=== PATIENT | male | born 1955 | race Caucasian/White ===

== ENCOUNTER → 2021-06-09 10:13 | Outpatient (CLI) | payer MEDICARE, BC, SELFPAY ==
--- NOTE | ~2021-06-09 | XR_ITS ---
EXAMINATION: XR knee RT 2V DATE: 06/09/2021 11:19 INDICATION: Right knee pain TECHNIQUE: Two views of the right knee were obtained. COMPARISON: None. FINDINGS: Alignment is normal. No fracture or osteochondral lesion. There is mild tricompartmental os teoarthritis characterized by tiny marginal osteophytes. No joint effusion/synovitis. Soft tissues a re unremarkable. IMPRESSION: 1. No acute osseous abnormality. Reviewed, dictated and finalized at location B.
== END ==
PROVIDERS: PCP Family Medicine
DX: M25.561 Pain in right knee (principal)
CPT/HCPCS: 73560

== ENCOUNTER → 2021-06-21 07:57 | Outpatient (CLI) | payer MEDICARE, BC, SELFPAY ==
--- NOTE | ~2021-06-21 | MR_ITS ---
EXAMINATION: MR knee RT wo con DATE: 06/21/2021 08:53 INDICATION: Right knee pain. TECHNIQUE: Magnetic resonance imaging (MRI) of the right knee was performed without intravenous contr ast. Sequences included axial PD-weighted FS FSE, coronal PD-weighted FSE and PD-weighted FS FSE, sag ittal PD-weighted FSE, and sagittal T2-weighted FS FSE. COMPARISON: Right knee radiographs 06/09/2021 FINDINGS: Medial compartment: Medial meniscus is normal. Medial compartment cartilage is normal. Lateral compartment: There is an undersurface horizontal tear of posterior horn of lateral meniscus. There is deep partial thickness cartilage loss of tibial condyle involving the central and posterior articular surface wit h irregularity of the subchondral cortex. Femoral cartilage is normal. Patellofemoral compartment: There is shallow partial-thickness cartilage loss of patellar lateral facet. Trochlear cartilage is n ormal. Ligaments and tendons: The anterior and posterior cruciate ligaments are normal. There is a partial tear of medial collatera l ligament with surrounding edema. There is a skin marker superficial to medial femoral condyle. Ther e are changes of prior sprain of fibular collateral ligament characterized by thickening and increase d signal intensity. There is mild patellar tendinopathy. Fluid: There is a small knee joint effusion. There is a 13 x 8 mm ganglion cyst posterior to proximal tibiof ibular joint. There is trace fluid in a Hsu's cyst. There is mild prepatellar bursitis and moderate superficial infrapatellar bursitis. IMPRESSION: 1. 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 2. Tear of lateral meniscus. 3. Partial tear of medial collateral ligament (grade 2 sprain). 4. Small knee joint effusion. 5. Ganglion cyst posterior to proximal tibiofibular joint. Reviewed, dictated and finalized at location A. S SAGGER IMPRESSION: 1. Moderate chondrosis of lateral compartment and mild chondrosis of patellofem oral compartment. 2. Tear of lateral meniscus. 3. Partial tear of medial collateral ligament (grade 2 sprain). 4. Small knee joint effusion. 5. Ganglion cyst posterior to proximal tibiofibular joint.
== END ==
PROVIDERS: Visit Provider Family Medicine
DX: S83.281A Other tear of lateral meniscus, current injury, right knee, initial encounter (principal); X58.XXXA Exposure to other specified factors, initial encounter; M25.461 Effusion, right knee; S83.411A Sprain of medial collateral ligament of right knee, initial encounter; M71.21 Synovial cyst of popliteal space [Baker], right knee
CPT/HCPCS: 73721

== ENCOUNTER 2024-02-25 02:41 | Day surgery (SDC) | payer MEDICARE, BC, SELFPAY ==
[2024-02-12 10:42] VITALS: BMI 30.9
[2024-02-25 06:22] VITALS: BP 131/70; PULSE 94; RESP 18; TEMP 36.1; O2SAT 98
--- NOTE | 2024-02-25 06:33 | WPDANESEPPF ---
Anes - Initial Pre Proc Eval Procedure: Operation Date: 02/25/24 07:30 Proposed Procedures p Colonoscopy - Enrrique Arroyo MD Date/Time: 02/25/24 06:33 Surgeon: Enrrique Arroyo MD Pre Op Diagnosis: Personal history colon polyps Patient Data Age: 69 Gender: M Height: 1.75 m Weight: 95 kg Last Vital Signs Temp 36.1 C L 02/25/24 06:22 Pulse 94 02/25/24 06:22 Resp 18 02/25/24 06:22 BP 131/70 02/25/24 06:22 Pulse Ox 98 02/25/24 06:22 O2 Del Method Room Air 02/25/24 06:22 Allergies Allergy/AdvReac Type Severity Reaction Status Date / Time No Known Allergies Allergy Verified 02/25/24 06:21 Home Medications Medication Instructions Recorded Confirmed Type aspirin 81 mg tablet,delayed 81 mg PO DAILY 05/31/23 02/12/24 History release (Adult Low Dose Aspirin) blood sugar diagnostic (Accu-Chek #10 ea 05/31/23 05/31/23 Rx Guide test strips) blood-glucose meter (Accu-Chek #1 ea 05/31/23 05/31/23 Rx Guide Me Glucose Meter) finerenone 10 mg tablet (Kerendia) 10 mg PO DAILY 05/31/23 02/12/24 History metoprolol succinate 50 mg 50 mg PO DAILY 05/31/23 02/12/24 History tablet,extended release 24 hr montelukast 10 mg tablet 10 mg PO DAILY 05/31/23 02/12/24 History pantoprazole 40 mg tablet,delayed 40 mg PO QAM 05/31/23 02/12/24 History release rivaroxaban 20 mg tablet (Xarelto) 20 mg PO DAILY 05/31/23 02/25/24 History rosuvastatin 40 mg tablet 40 mg PO DAILY 05/31/23 02/12/24 History metformin 500 mg tablet,extended 2,000 mg PO DAILY 02/12/24 02/12/24 History release 24 hr semaglutide 1 mg/dose (4 mg/3 mL) See Rx Instructions .Route 02/17/24 Rx subcutaneous pen injector (Ozempic) .COMPLEX #9 mL Patient hx anesthesia problems: none Family hx anesthesia problems: none Results Review: All pre-operative results and documents have been reviewed as part of the pre-operative evaluation. [facility] Past Medical History Medical History (Updated 02/25/24 @ 06:33 by Kevan Oliveira MD) A-fib Obesity RADHA on CPAP Type 2 diabetes mellitus Surgical History Surgical History (Updated 02/25/24 @ 06:33 by Kevan Oliveira MD) H/O colonoscopy Family History Family History Other Diabetes mellitus Social History Social History Smoking status: Never smoker Alcohol intake: current Drinks per week: 1 Alcohol use details: Wine Substance use: never Do You Feel Safe in your Home?: Yes Lack of Transportation: No Lack of Food: Never True Current Housing: I Have Housing Concerned About Future Housing: No Difficulty Paying Gas/Electric Bills: No Difficulty Paying for Meds: No Currently Unemployed: No Education: Associate Degree Difficulty w/ Childcare or Family Care: No Spiritual care concerns: No Anes - Eval Final PreProcedure Day of Procedure 02/25/24 06:33 Patient weight: obese Heart: regular rate and rhythm Lungs: clear to auscultation Airway: Mallampati scale class II Neurological: alert and oriented Last oral intake: >/= 8 hours ASA classification: III Emergent: no Anesthetic plan: proceed Anesthesia type and monitoring: general GIVS and standard monitoring Results Review: All pre-operative results and documents have been reviewed as part of the pre-operative evaluation. Informed Consent: The patient's anesthetic plan and its attendant risks and benefits were discussed with the patient/family/POA. Questions were solicited and answers provided to the satisfaction of the patient/family/POA.
[2024-02-25] MEDS: LACTATED RINGERS 1,000 ML 150 ML IV CONT (06:38)
[2024-02-25 06:47] LABS: Glucose Point of Care 111 mg/dl (65-105)
--- NOTE | 2024-02-25 07:33 | PM.HPGS ---
History of Present Illness History of Present Illness Consent: Risks, benefits, and alternatives have been discussed and questions answered. Patient agrees to proceed with procedure. Chief complaint: Personal history colon polyps Narrative: José Miguel Vasquez is a 69 year old male with colon polyp 5 years ago Review of Systems Review of Systems: All systems reviewed & are unremarkable except as noted in HPI and below PMFSH Past Medical History Medical History (Updated 02/25/24 @ 07:33 by Enrrique Arroyo MD) A-fib Colon polyp Obesity RADHA on CPAP Type 2 diabetes mellitus Surgical History Surgical History (Updated 02/25/24 @ 06:33 by Kevan Oliveira MD) H/O colonoscopy Family History Family History Other Diabetes mellitus Social History Social History Smoking status: Never smoker Alcohol intake: current Drinks per week: 1 Alcohol use details: Wine Substance use: never Do You Feel Safe in your Home?: Yes Lack of Transportation: No Lack of Food: Never True Current Housing: I Have Housing Concerned About Future Housing: No Difficulty Paying Gas/Electric Bills: No Difficulty Paying for Meds: No Currently Unemployed: No Education: Associate Degree Difficulty w/ Childcare or Family Care: No Spiritual care concerns: No Meds Home Medications and Allergies Home Medications Medication Instructions Recorded Confirmed Type aspirin 81 mg tablet,delayed 81 mg PO DAILY 05/31/23 02/12/24 History release (Adult Low Dose Aspirin) blood sugar diagnostic (Accu-Chek #10 ea 05/31/23 05/31/23 Rx Guide test strips) blood-glucose meter (Accu-Chek #1 ea 05/31/23 05/31/23 Rx Guide Me Glucose Meter) finerenone 10 mg tablet (Kerendia) 10 mg PO DAILY 05/31/23 02/12/24 History metoprolol succinate 50 mg 50 mg PO DAILY 05/31/23 02/12/24 History tablet,extended release 24 hr montelukast 10 mg tablet 10 mg PO DAILY 05/31/23 02/12/24 History pantoprazole 40 mg tablet,delayed 40 mg PO QAM 05/31/23 02/12/24 History release rivaroxaban 20 mg tablet (Xarelto) 20 mg PO DAILY 05/31/23 02/25/24 History rosuvastatin 40 mg tablet 40 mg PO DAILY 05/31/23 02/12/24 History metformin 500 mg tablet,extended 2,000 mg PO DAILY 02/12/24 02/12/24 History release 24 hr semaglutide 1 mg/dose (4 mg/3 mL) See Rx Instructions .Route 02/17/24 Rx subcutaneous pen injector (Ozempic) .COMPLEX #9 mL Allergies Allergy/AdvReac Type Severity Reaction Status Date / Time No Known Allergies Allergy Verified 02/25/24 06:21 Vital Signs Vital Signs - 24 hr 02/25/24 06:22 Temperature 97 F L Pulse Rate 94 Respiratory Rate 18 Blood Pressure 131/70 Pulse Oximetry 98 Oxygen Delivery Room Air Exam Const: General: comfortable and no acute distress HENMT: Face/Nose/Sinus: Normal nares present Eyes: General: appearance normal, both eyes and all related structures Neck: Neck: no JVD Resp: Auscultation: clear to auscultation bilaterally Cardio: Rate: regular rate Rhythm: regular rhythm GI: Inspection: non-distended GI Palp: Yes Soft to palpation Skin: General skin exam: normal color Neuro: General: gait normal Speech: normal speech Extrem: General: normal to inspection Psych: Mental Status: mental status grossly normal Assessment and Plan Assessment and plan (1) Colon polyp: Code(s): K63.5 - Polyp of colon Status: Acute Assessment and Plan: colonoscopy
[2024-02-25 07:48] VITALS: BP 100/58; PULSE 97; RESP 30; O2SAT 96
[2024-02-25 07:58] VITALS: BP 105/68; PULSE 96; RESP 13; O2SAT 96
[2024-02-25 08:08] VITALS: BP 112/72; PULSE 82; RESP 15; O2SAT 98
--- NOTE | 2024-02-25 13:58 | PC.NURSE ---
Pt notified on 02/12/24 to stop xarelto, last dose on 02/21. Pt stated understanding.
== END 2024-02-25 08:19 | disposition home or self-care (01) ==
PROVIDERS: PCP Family Medicine; Visit Provider Internal Medicine Gastroenterology
PROC: 0DJD8ZZ Inspection of Lower Intestinal Tract, Via Natural or Artificial Opening Endoscopic (ICD-10-PCS; CPT 45378; principal; 2024-02-25 07:30)
DX: Z12.11 Encounter for screening for malignant neoplasm of colon (principal); K57.30 Diverticulosis of large intestine without perforation or abscess without bleeding; K64.8 Other hemorrhoids; Z86.010 Personal history of colon polyps; I48.91 Unspecified atrial fibrillation; E11.9 Type 2 diabetes mellitus without complications; G47.33 Obstructive sleep apnea (adult) (pediatric); E66.9 Obesity, unspecified; Z68.30 Body mass index [BMI] 30.0-30.9, adult; Z79.82 Long term (current) use of aspirin; Z79.01 Long term (current) use of anticoagulants; Z79.84 Long term (current) use of oral hypoglycemic drugs; Z79.85 Long-term (current) use of injectable non-insulin antidiabetic drugs
CPT/HCPCS: G0105; 82948; J2704; J7120